=== PATIENT | female | born 1965 | race Caucasian/White ===

== ENCOUNTER 2024-02-10 12:38 | Emergency (ER) | payer OTHER ==
[~2024-02-10] VITALS: Ht 165.1 cm; Wt 100.0 kg
[2024-02-10] MEDS ORDERED: IBLOOD GLUCOSE TEST STRIP 1 EA TEST XX ONE (13:00)
[2024-02-10 13:03] LABS: BASOPHILS 0.7 % (0-2); EOSINOPHILS 0.8 % (0-6); HEMOGLOBIN 14.2 g/dL (12.0-18.0); LYMPHOCYTES 25.7 % (24-44); MCH 29.1 (27-36); MCHC 33.8 g/dl (30-36); MCV 86.1 fl (81-99); NEUTROPHILS 68.8 % (39-80); PLATELET COUNT 192 K/uL (140-440); RBC 4.88 M/ul (4.3-5.7); RDW 14.5 (10.5-15.0)
[2024-02-10 14:05] LABS: ALBUMIN 3.4 g/dL (3.4-5.0); ALBUMIN/GLOBULIN RATIO 0.87 (1.1-2.4); ANION GAP 12.7 (7-21); BILIRUBIN, TOTAL 0.7 ng/dL (0.2-1.0); BUN/CREATININE RATIO 17.07 (6.0-28.6); CALCIUM 9.1 mg/dL (8.5-10.1); CREATININE, SERUM 0.82 mg/dL (0.55-1.02); MAGNESIUM 1.8 mg/dL (1.8-2.4); POTASSIUM 3.7 mmol/L (3.5-5.1); PROTEIN, TOTAL 7.3 g/dL (6.4-8.2)
[2024-02-10 15:04] VITALS: BP 134/78
--- NOTE | 2024-02-11 15:56 | EKG ---
[facility] [address] [facility] [place], [place] [address] Signed Normal sinus rhythm Normal ECG No previous ECGs available Confirmed by Mary Caballero MD ([id number]) on 02/11/2024 3:56:36 PM Electronically Signed By: MARY CABALLERO MD 02/11/24 1556 PATIENT NAME: GUERDA MARTINEZ Electrocardiogram DATE OF : 65 PHYSICIAN: MARY CABALLERO MD REPORT #: [id number] REPORT IS CONFIDENTIAL AND NOT TO BE RELEASED WITHOUT AUTHORIZATION
== END 2024-02-10 15:01 | disposition home or self-care (01) ==
LOC: ED 12:38
PROVIDERS: Emergency Medicine
DX: R55 Syncope and collapse (principal)
CPT/HCPCS: 36415; 80053; 83735; 84484; 85025; 93005; 93010; 99284